=== PATIENT | female | born 1960 | race Caucasian/White ===

== ENCOUNTER 2021-03-07 00:37 | Emergency (ER) | payer OTHER ==
[~2021-03-07] VITALS: Ht 177.8 cm; Wt 47.6 kg
[2021-03-07 00:42] VITALS: BP 118/65
--- NOTE | 2021-03-07 00:46 | NUR ---
PT BIBSELF C/O LEFT SIDE SORE THROAT X2DAYS. PT AAOX4 BREATHING EVENLY AND UNLABORED. PT SKIN WARM, DRY, AND INTACT. PT DENIES TAKING ANY MEDICATION FOR PAIN. PT ATTACHED TO MONITOR AND POX. PT GIVEN BLANKET AND CALL LIGHT WITHIN REACH
[2021-03-07] MEDS ORDERED: AMOX-430 PO (00:58)
--- NOTE | 2021-03-07 01:00 | NUR ---
Patient discharged to home in stable condition. Written and verbal after care instructions given. Patient verbalizes understanding of instruction. Pt ambulatory with a steady gait
== END 2021-03-07 01:00 | disposition home or self-care (01) ==
LOC: ER 00:43
DX: J02.9 Acute pharyngitis, unspecified (principal); F17.200 Nicotine dependence, unspecified, uncomplicated; Z79.899 Other long term (current) drug therapy

== ENCOUNTER 2021-04-06 03:59 | Emergency (ER) | payer OTHER ==
[~2021-04-06] VITALS: Ht 177.8 cm; Wt 61.2 kg
[~2021-04-06 03:59] MED LIST: AMOX-430 PO
[2021-04-06 04:08] VITALS: BP 124/98
--- NOTE | 2021-04-06 04:10 | NUR ---
Pt BIBself C/O of lower R leg wound s/p hitting a wooden furniture. Pt is alert and orientedX4. Respiration is normal in room air. No SOB. No S/S of distress noted. at the bedside. Pt attached to monitor and pulse ox. Given a warm blanket and call light.
[2021-04-06] MEDS ORDERED: CEPH500T PO (04:19)
[2021-04-06] MEDS ORDERED: SULF1TAB48 PO (04:19)
[2021-04-06] MEDS ORDERED: CEPHALEXIN MONOHYDRATE 500 MG CAPSULE PO ONE ×2 (04:20→04:30)
[2021-04-06] MEDS ORDERED: SULFAMETH/TRIMETH 800/160 MG 1 UDTAB TABLET ONE (04:20)
--- NOTE | 2021-04-06 04:25 | NUR ---
Patient discharged to home in stable condition. Written and verbal after care instructions given. Patient verbalizes understanding of instruction. Pt ambulatory with a steady gait.
[2021-04-06] MEDS ORDERED: SULFAMETH/TRIMETH 800/160 MG 1 UDTAB TABLET PO ONE (04:30)
== END 2021-04-06 04:27 | disposition home or self-care (01) ==
LOC: ER 04:05
DX: S81.811A Laceration without foreign body, right lower leg, initial encounter (principal); F17.200 Nicotine dependence, unspecified, uncomplicated; W22.8XXA Striking against or struck by other objects, initial encounter; Y93.89 Activity, other specified; Y92.89 Other specified places as the place of occurrence of the external cause; Y99.8 Other external cause status